=== PATIENT | male | born 1975 | race Caucasian/White ===

== ENCOUNTER 2017-08-21 05:25 | Day surgery (SDC) | payer MEDICARE ==
[2017-08-20 15:48] LABS: BASOPHILS 0.4 % (0-2); EOSINOPHILS 1.4 % (0-7); HEMATOCRIT 35.3 % (42.0-54.0); HEMOGLOBIN 12.2 g/dL (13.5-17.5); IMMATURE GRANULOCYTES 0.3 % (0-5); LYMPHOCYTES 23.1 % (15-50); MCH 33.8 pg (26.0-34.0); MCHC 34.6 g/dL (31.0-37.0); MCV 97.8 fL (80.0-100.0); MEAN PLATELET VOLUME 9.5 fL (7.4-10.4); MONOCYTES 6.5 % (2-11); NEUTROPHILS 68.3 % (40-80); RBC 3.61 10x6/uL (4.20-6.10); RDW 14.4 % (11.5-14.5); WBC 7.4 10x3/uL (4.8-10.8)
[2017-08-20 16:00] LABS: INR 0.99 (0.85-1.17); PROTIME 12.7 SECONDS (11.6-15.0)
[2017-08-20 16:01] LABS: APTT 31.6 SECONDS (22.8-39.4); PLATELET COUNT 195 10x3/uL (130-400)
[2017-08-20 16:09] LABS: ANION GAP 17.1 mmol/L (8-16); CALCIUM 8.7 mg/dL (8.5-10.1); CARBON DIOXIDE 29.5 mmol/L (21.0-32.0); CREATININE - SERUM 10.7 mg/dL (0.6-1.3); POTASSIUM - SERUM 3.6 mmol/L (3.5-5.1)
[~2017-08-21] VITALS: Ht 177.8 cm; Wt 111.6 kg
--- NOTE | ~2017-08-21 | OP ---
PATIENT NAME: JAYLYN CEDENO MEDICAL RECORD: [id number] :79 LOCATION:[facility] ADMISSION DATE: SURGEON: VIDAL DOTSON MD DATE OF OPERATION: 08/21/2017 REFERRED BY: Dr. 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 OPERATION PERFORMED: Right arm AV fistulogram and selective right arm brachial artery arteriogram and open FARLEY banding of high-flow AV fistula. SURGEON: Vidal Dotson MD ANESTHESIA: General with LMA per ART COORDINATOR and Dr. Garrido. PREOPERATIVE NOTE: Mr. Cedeno is a 41-year-old white male gentleman from [place], [place] referred by Dr. Elmore. He has a high-flow right arm brachiocephalic AV fistula, which is hyperpulsatile and aneurysmal due to recurring proximal and arch stenoses. He was referred to or for banding. He has minimal or no symptoms of steal syndrome. DESCRIPTION OF PROCEDURE: Under anesthesia, the patient was prepped and draped in a sterile manner. The fistula was accessed with ultrasound guidance using micropuncture technique and a fistulogram performed, which revealed crok-bi-hvpfirmh 40% to 50% diameter recurrent long segmental stenosis of the cephalic arch. A Glidewire and then a 6-Congolese introducer were placed and a glide catheter then advanced distally over the Glidewire into the distal brachial artery and contrast injection performed, which revealed mild filling of the fistula with good flow distally in the forearm and hand. The catheter and guidewire were pulled back and the guidewire and then the catheter repositioned in the proximal brachial artery and the angiogram repeated. This revealed excellent flow distally into the forearm and hand as well as filling of the AV fistula and no lesions or stenoses or other brachial or proximal radial or ulnar arteries. I then advanced a 4-mm x 40-mm Niobrara angioplasty balloon into the JA segment of the fistula. A transverse incision was made and the underlying cephalic vein portion of the fistula exposed, was encircled with a Silastic tape. Fluoroscopy was used to pinpoint the positioning of the balloon. The balloon was then inflated and two 2-0 Prolene ligatures were placed around the vein over the balloon and tied snugly. The balloon was deflated and removed and replaced with a glide catheter and the brachial artery and repeated contrast injection revealed increased flow distally to the forearm and hand, but persistence of flow into the fistula, though with very slow flow in the aneurysmal segments. I elected to go ahead and remove one of the 2 Prolene ligatures and then repeated an angiogram. This revealed better flow in the fistula. Palpably the fistula was not hyperpulsatile and there was a good thrill. I stopped at this point. The wound was irrigated with saline and then infiltrated with 0.25% Marcaine without epinephrine and closed with a few interrupted inverted 3-0 Vicryl and running intracuticular 4-0 Monocryl and OPERATIVE REPORT [id number] CHITOKRISTIANJAYLYN Dermcm glue. It was dressed with Maxorb Ag, Tegaderm, and Cavilon skin prep. The 6-Congolese sheath was removed and the puncture site sutured with a miaovs-ul-urqnm 4-0 Prolene suture. That site was held with some light pressure until hemostasis was obtained and it was then dressed with Ultrafoam, Tegaderm, and Cavilon skin prep. The patient was awakened and taken to the recovery room. There was no blood loss during the procedure and all sponges, instruments, and needles were accounted for. No drain was used and no surgical specimen was submitted for histopathology. Mr. Cedeno will be discharged to home today, and he is to resume his usual diet and medications and regular dialysis schedule. He will be given an appointment to see me in my office next week. I believe that he should have a followup OPC angiogram in 4-6 weeks as I think it is likely he will need to have the proximal venous stenosis dilated again by that time. Should clinically the flow in the fistula be less than desired, it should be possible to dilate the remaining 2-0 Prolene tie using a high-pressure balloon and dilate it to a 5-mm diameter lumen. More than that would require an open operation I feel to remove the Prolene and place additional ligatures around larger balloons. TRANSINT:[id number] Voice Confirmation ID: [id number] DOCUMENT ID: [id number] VIDAL DOTSON MD at 1241 CC: CLEVELAND ELMORE MD [id number] DICTATION DATE: 08/21/17 1004 SECURITY INTELLIGENCE ANALYST: 08/21/17 1347 [facility] [place] 08/21/17 [id number] [place] [address]
[~2017-08-21 05:25] MED LIST: CELEXA20 MG PO; EFFEXOR XR75 MG PO; METOPROLOL TART50 MG PO; RENVELA800 MG PO; XANAX0.25 MG PO; ZOCOR40 MG PO; ZYLOPRIM300 MG PO
[2017-08-21] MEDS ORDERED: TUMS500 MG PO (07:03)
[2017-08-21] MEDS ORDERED: ISOSORBIDE MONO60 M1 PO (07:04)
[2017-08-21] MEDS ORDERED: GABAPENTIN100 MG PO (07:04)
[2017-08-21] MEDS ORDERED: SENSIPAR30 MG PO (07:05)
[2017-08-21 07:15] VITALS: BP 120/67; Ht 177.8 cm; Wt 111.6 kg
== END 2017-08-21 11:55 | disposition home or self-care (01) ==
LOC: D.OPS 05:25 → D.PAN 08:00 → D.OPS 08:00
PROVIDERS: Internal Medicine
DX: T82.510A Breakdown (mechanical) of surgically created arteriovenous fistula, initial encounter (principal); I70.298 Other atherosclerosis of native arteries of extremities, other extremity; N18.6 End stage renal disease; Z99.2 Dependence on renal dialysis; Z01.812 Encounter for preprocedural laboratory examination

== ENCOUNTER 2018-05-17 11:53 | Inpatient (IN) | payer MEDICARE ==
[~2018-05-17] VITALS: Ht 177.8 cm; Wt 116.5 kg
[~2018-05-17 11:53] MED LIST changes: +GABAPENTIN100 MG PO; +ISOSORBIDE MONO60 M1 PO; +SENSIPAR30 MG PO; +TUMS500 MG PO
[2018-05-20] MEDS ORDERED: FERRIC CITRATE210 MG PO (15:45)
[2018-05-20 15:49] LABS: HEMATOCRIT 29.7 % (42.0-54.0); RBC 3.14 10x6/uL (4.20-6.10); WBC 7.4 10x3/uL (4.8-10.8)
[2018-05-20 15:50] LABS: BASOPHILS 0.4 % (0-2); EOSINOPHILS 1.8 % (0-7); IMMATURE GRANULOCYTES 0.3 % (0-5); LYMPHOCYTES 18.9 % (15-50); MCH 31.8 pg (26.0-34.0); MCHC 33.7 g/dL (31.0-37.0); MCV 94.6 fL (80.0-100.0); MEAN PLATELET VOLUME 9.4 fL (7.4-10.4); NEUTROPHILS 70.6 % (40-80); PLATELET COUNT 203 10x3/uL (130-400); RDW 13.7 % (11.5-14.5)
[2018-05-20 15:57] LABS: APTT 38.5 SECONDS (22.8-39.4); INR 1.1 (0.85-1.17); PROTIME 13.7 SECONDS (11.6-15.0)
[2018-05-20 16:02] LABS: ANION GAP 17.1 mmol/L (8-16); CALCIUM 10.3 mg/dL (8.5-10.1); CARBON DIOXIDE 29.5 mmol/L (21.0-32.0); CREATININE - SERUM 10.6 mg/dL (0.6-1.3); POTASSIUM - SERUM 3.6 mmol/L (3.5-5.1)
[2018-05-21 06:23] VITALS: BP 129/70
[2018-05-21 11:11] VITALS: BP 119/60
--- NOTE | 2018-05-21 11:15 | NUR ---
RECEIVED PT FROM OR. VITALS STABLE. PT HAD A THYROIDECTOMY AND ESRD. PT HAS RIGHT ARM FISTULA. RESERVE RIGHT ARM. IJ CENTRAL LINE, IV IN LEFT HAND ALSO, SITES PATENT WITHOUT REDNESS OR SWELLING, SL. C/O PAIN, GAVE BUPRENEX 0.1MG. PT ON 2L O2, NC. O2 SAT @ 99%. NO S/S OF ACUTE DISTRESS NOTED. PT DENIES ANYTHING FURTHER AT THIS TIME. CALL LIGHT IN REACH. WILL CONTINUE TO MONITOR.
[2018-05-21 12:20] VITALS: BP 111/60
[2018-05-21 12:31] VITALS: BP 113/50; BMI 35.9
[2018-05-21 15:18] VITALS: BP 118/55
--- NOTE | 2018-05-21 17:54 | NUR ---
PT RESTING IN BED, EYES OPEN. NO C/O PAIN. NO S/S OF ACUTE DISTRESS NOTED. HAS AN ORDER FOR A COOL MIST HUMIDIFIER/VAPORIZER, CALLED FEED MILL OPERATOR TO SEE IF WE CAN GET ONE. PT DENIES ANYTHING FURTHER AT THIS TIME. CALL LIGHT IN REACH. WILL CONTINUE TO MONITOR.
[2018-05-21 20:00] VITALS: BP 93/54
--- NOTE | 2018-05-21 20:41 | NUR ---
PT UP WALKING AROUND IN ROOM ALERRTC AND ORIENTED. PT COMPLAINS OF 6/10 ACHE/PRESSURE PAIN IN NECK. PRN PAIN MEDICATIONS GIVEN. FLUSHED OUT TRYALISIS LUMUNS. ALL DRAW BACK AND FLUSH. ORANGE CAPS IN USE. DRESSING TO FRONT OF NECK CLEAN, DRY, AND INTACT. PT DENIES ANY NEEDS AT THIS TIME. WILL CONTINUE TO MONITOR. BED LOW, CALL LIGHT WITHIN REACH. WILL CONTINUE TO MONITOR.
[2018-05-22] VITALS: BP 102/52
--- NOTE | 2018-05-22 00:13 | NUR ---
PT RESTING IN BED WITH EYES CLOSED. RESPIRATIONS EVEN AND UNLABORED. BED LOW SIDE RAILS UP X 2. CALL LIGHT WITHIN REACH. WILL CONTINUE TO MONITOR.
--- NOTE | 2018-05-22 02:28 | NUR ---
PT RESTING WITH EYES CLOSED. RESPIRATIONS EVEN AND UNLABORED. CALL LIGHT WITHIN REACH. WILL CONTINUE TO MONITOR.
[2018-05-22 04:00] VITALS: BP 107/56
[2018-05-22 06:14] LABS: BASOPHILS 0.1 % (0-2); EOSINOPHILS 0 % (0-7); IMMATURE GRANULOCYTES 0.2 % (0-5); LYMPHOCYTES 7.3 % (15-50); MCH 31.3 pg (26.0-34.0); MCHC 32.5 g/dL (31.0-37.0); MCV 96.3 fL (80.0-100.0); MEAN PLATELET VOLUME 9.5 fL (7.4-10.4); MONOCYTES 7.1 % (2-11); NEUTROPHILS 85.3 % (40-80); RDW 13.8 % (11.5-14.5); WBC 8.6 10x3/uL (4.8-10.8)
[2018-05-22 06:34] LABS: HEMATOCRIT 23.7 % (42.0-54.0); HEMOGLOBIN 7.7 g/dL (13.5-17.5); PLATELET COUNT 140 10x3/uL (130-400); RBC 2.46 10x6/uL (4.20-6.10)
[2018-05-22 07:53] LABS: ANION GAP 22.5 mmol/L (8-16); CALCIUM 7.1 mg/dL (8.5-10.1); CARBON DIOXIDE 24.5 mmol/L (21.0-32.0); CREATININE - SERUM 14.7 mg/dL (0.6-1.3)
--- NOTE | 2018-05-22 08:00 | NUR ---
RECIEVED BEDSIDE REPORT. AM ROUNDS COMPLETED. PT AAOX3. VVS, RR UNLABORED, NO S/S OF DISTRESS. PT IS UP IN BED WITH EYES OPEN. STATES HE DID NOT GET MUCH SLEEP LAST NIGHT. PT READY FOR DIALYSIS. WILL CPOC. CL IN REACH, BED IN LOW.
[2018-05-22 08:58] VITALS: BP 127/69
--- NOTE | 2018-05-22 09:46 | NUR ---
PT OUT FOR DIALYSIS. WILL CPOC.
--- NOTE | 2018-05-22 12:45 | NUR ---
PT BACK FROM DIALYSIS VSS, AAOX3, NO S/S OF DISTRESS. WILL CPOC.
[2018-05-22 14:58] VITALS: Ht 177.8 cm; Wt 116.5 kg
[2018-05-22 15:55] VITALS: BP 122/70
[2018-05-22 20:00] VITALS: BP 114/58
--- NOTE | 2018-05-22 20:00 | NUR ---
PT SITTING UP IN BED ALERT AND ORIENTED. PT BANDAGE TO NECK CLEAN, DRY, INTACT. PT DENIES ANY NEEDS OR PAIN AT THIS TIME. BED LOW CALL LIGHT WITHIN REACH. WILL CONTINUE TO MONITOR.
[2018-05-23] VITALS: BP 116/50
--- NOTE | 2018-05-23 01:34 | NUR ---
PT RESTING IN BED WITH EYES CLOSED RESPIRATIONS EVEN AND UNLABORED. BED LOW CALL LIGHT WITHIN REACH. WILL CONTINUE TO MONITOR.
[2018-05-23 03:36] LABS: BASOPHILS 0.6 % (0-2); EOSINOPHILS 0.8 % (0-7); HEMATOCRIT 25.8 % (42.0-54.0); HEMOGLOBIN 8.3 g/dL (13.5-17.5); IMMATURE GRANULOCYTES 0.6 % (0-5); LYMPHOCYTES 21.7 % (15-50); MCH 31.6 pg (26.0-34.0); MCHC 32.2 g/dL (31.0-37.0); MCV 98.1 fL (80.0-100.0); MEAN PLATELET VOLUME 9.4 fL (7.4-10.4); MONOCYTES 7.6 % (2-11); NEUTROPHILS 68.7 % (40-80); PLATELET COUNT 163 10x3/uL (130-400); RBC 2.63 10x6/uL (4.20-6.10); WBC 7.2 10x3/uL (4.8-10.8)
[2018-05-23 03:44] LABS: ANION GAP 18.7 mmol/L (8-16); CALCIUM 7.3 mg/dL (8.5-10.1); CARBON DIOXIDE 28.5 mmol/L (21.0-32.0); CREATININE - SERUM 11.4 mg/dL (0.6-1.3); POTASSIUM - SERUM 4.2 mmol/L (3.5-5.1)
[2018-05-23 04:00] VITALS: BP 114/58
--- NOTE | 2018-05-23 08:00 | NUR ---
RECIEVED BEDSIDE REPORT. AM ROUNDS COMPLETED. VSS, AAOX3, NO S/S OF DISTRESS. RR UNLABORED. ASSESSED PT NECK DRESSING. DRESSING C/D/I. PT CVL PATENT, DRESSING C/D/I. AM MEDS GIVEN, CL IN REACH, BED IN LOW.
[2018-05-23 08:02] VITALS: BP 126/74
[2018-05-23 11:25] VITALS: BP 128/60
--- NOTE | 2018-05-23 15:00 | NUR ---
PT STATES HIS PERIPHERAL IV CAME OUT WHILE HE WAS ASLEEP. ASSESSED THE SITE NO BLEEDING, IV TIP INTACT. APPLIED 2X2 GAUZE AND TAPED. MEDS ALSO GIVEN. DID NOT RESTART IV AT THIS TIME. PT HAVE CVL ON RIGHT IJ. WILL CTM. CL IN REACH, BED IN LOW.
[2018-05-23 15:32] VITALS: BP 120/56
--- NOTE | 2018-05-23 19:15 | NUR ---
Received patient resting in bed, neck dressing C/D/I, Right IJ CVL with three lumens in place, Calcium Chloride infusing @60ml/hr. Continue to be checking Calcium level every four hours. Denied any needs or concerns at this time. No furthur tingling sensation of mouth and lips but does remain sleepy and tired, denies pain or discomfort.
[2018-05-23 20:00] VITALS: BP 147/72
[2018-05-24] VITALS: BP 126/67
--- NOTE | 2018-05-24 01:32 | NUR ---
Last Calcium level has just now resulted, Calcium level @2030 = 9.6 Patient remains drowsy and fatigued easily, denies any pain or discomfort. Recheck @0105 = 10.5 Calcium gtt stopped for now. Level is scheduled to be rechecked later this morning. Discussed with Charge Nurse, will report to Day Shift to inform attending MD.
[2018-05-24 04:00] VITALS: BP 133/67
[2018-05-24 04:54] LABS: BASOPHILS 0.3 % (0-2); EOSINOPHILS 1.4 % (0-7); HEMATOCRIT 25.6 % (42.0-54.0); HEMOGLOBIN 8.5 g/dL (13.5-17.5); IMMATURE GRANULOCYTES 0.5 % (0-5); LYMPHOCYTES 11.2 % (15-50); MCH 31.7 pg (26.0-34.0); MCHC 33.2 g/dL (31.0-37.0); MEAN PLATELET VOLUME 9.9 fL (7.4-10.4); MONOCYTES 8.9 % (2-11); NEUTROPHILS 77.7 % (40-80); PLATELET COUNT 181 10x3/uL (130-400); RBC 2.68 10x6/uL (4.20-6.10); RDW 13.9 % (11.5-14.5)
[2018-05-24 04:59] LABS: MCV 95.5 fL (80.0-100.0); WBC 11.7 10x3/uL (4.8-10.8)
[2018-05-24 05:01] LABS: ANION GAP 22.1 mmol/L (8-16); CALCIUM 9.9 mg/dL (8.5-10.1); CARBON DIOXIDE 22.5 mmol/L (21.0-32.0); CREATININE - SERUM 13.2 mg/dL (0.6-1.3)
[2018-05-24 05:02] LABS: POTASSIUM - SERUM 5.6 mmol/L (3.5-5.1)
--- NOTE | 2018-05-24 06:45 | NUR ---
Calcium level within normal limits this morning = 9.9 K+ is elevated = 5.6, BUN and creatinine progressively higher that yesterday. Will pass on in report. Patient has slept long periods, snoring lightly.
--- NOTE | 2018-05-24 08:00 | NUR ---
RECIEVED BEDSIDE REPORT. PT IN BED WITH EYES OPENED. PT APPEARS LETHARGIC. PT STATES HE ONLY FEELS SLIGHT WEAKNESS, BUT THAT HE IS BETTER THAN YESTERDAY. VVS, AAOX3, RR UNLABORED, NO S/S OF DISTRESS. AM MEDS GIVEN. PT AWAITING DIALYSIS. WILL CPOC. CL IN REACH, BED IN LOW.
[2018-05-24 09:02] VITALS: BP 140/77
--- NOTE | 2018-05-24 10:00 | NUR ---
PT OUT FOR DIALYSIS. VSS, AAOX3. WILL CPOC.
--- NOTE | 2018-05-24 15:00 | NUR ---
PT BACK FROM DIALYSIS, VSS, AAOX3, NO S/S OF DISTRESS, RR UNLABORED. DENIES ANY FURTHER NEEDS AT THIS TIME. MEDS GIVEN, PT CURRENTLY EATING HIS LUNCH. CL IN REACH, BED IN LOW.
--- NOTE | 2018-05-24 15:00 | NUR ---
Nutrition follow-up: Diet: Renal ADA PO intake ~75% average of meals Ca drip +BM Wt: 256# RDN following.
[2018-05-24 16:38] VITALS: BP 133/75
--- NOTE | 2018-05-24 19:45 | NUR ---
RECIEVED ONCOMING REPORT ON PT. PT LAYING IN BED A&O. PT RR EVEN AND UNLABORED. PT RECIEVING CALCIUM CHLORIDE RUNNING AT 30ML/HR. DRESSING TO NECK IS CLEAN,DRY, AND INTACT. PT DENIES ANY NEEDS OR PAIN AT THIS TIME. BED LOW CALL LIGHT WITHIN REACH. WILL CONTINUE TO MONITOR.
[2018-05-24 20:00] VITALS: BP 117/56
--- NOTE | 2018-05-25 01:40 | NUR ---
PT RESTING IN BED COMFORTABLY. RESPIRATIONS EVEN AND UNLABORED. BED LOW CALL LIGHT WITHIN REACH. WILL CONTINUE TO MONITOR.
[2018-05-25 04:00] VITALS: BP 157/82
[2018-05-25 04:57] LABS: BASOPHILS 0.6 % (0-2); EOSINOPHILS 1.8 % (0-7); HEMOGLOBIN 8.5 g/dL (13.5-17.5); IMMATURE GRANULOCYTES 0.4 % (0-5); LYMPHOCYTES 19.3 % (15-50); MCH 31.3 pg (26.0-34.0); MCHC 32.7 g/dL (31.0-37.0); MCV 95.6 fL (80.0-100.0); MEAN PLATELET VOLUME 9.9 fL (7.4-10.4); MONOCYTES 9.1 % (2-11); NEUTROPHILS 68.8 % (40-80); PLATELET COUNT 182 10x3/uL (130-400); RBC 2.72 10x6/uL (4.20-6.10); RDW 13.8 % (11.5-14.5)
[2018-05-25 05:03] LABS: WBC 7.2 10x3/uL (4.8-10.8)
[2018-05-25 05:23] LABS: ANION GAP 17.2 mmol/L (8-16); CALCIUM 10.4 mg/dL (8.5-10.1); CREATININE - SERUM 10.3 mg/dL (0.6-1.3); POTASSIUM - SERUM 5.2 mmol/L (3.5-5.1)
--- NOTE | 2018-05-25 05:37 | NUR ---
STOPPED PT'S CALCIUM CHLORIDE. CALCIUM 10.4 PER MORNING LABS. PT RESTING COMFORTABLY IN BED. DENIES ANY PAIN OR NEEDS AT THIS TIME. BED LOW CALL LIGHT WITHIN REACH. WILL CONTINUE TO MONITOR.
--- NOTE | 2018-05-25 05:43 | NUR ---
RESTING IN BED WITH EYES CLOSED. NO S/S OF DISTRESS OBSERVED, WILL CONT. POC.
--- NOTE | 2018-05-25 07:45 | NUR ---
INITIAL ROUNDING COMPLETED. WHITE BOARD UPDATED, CAREGIVERS INTRODUCED THROUGH THE BATHROOM DOOR, PATIENT IS IN BATHROOM. HE RAINE PAIN. AWAITING LAB RESULTS FROM AM LABS. PATIENT STATES HE "IS GOING HOME TODAY". WILL CONT TO MONITOR
[2018-05-25 09:40] VITALS: BP 142/67
--- NOTE | 2018-05-25 11:17 | NUR ---
SPOKE TO ANTONIO MOLINA AT THIS TIME. REPORTING THE CALCIUM LAB RESULTS, SHE STATED SHE IS PLANNING TO PUT A HOLD ON THE IV CALCIUM AT THIS TIME
[2018-05-25 13:51] VITALS: BP 110/57
[2018-05-25 17:02] VITALS: BP 135/75
--- NOTE | 2018-05-25 18:17 | NUR ---
PATIENT AWAKE, WATCHING TV. HE DENIES PAIN, NO SOB NOTED.
--- NOTE | 2018-05-25 19:46 | NUR ---
RECEIVED REPORT, WILL ASSUME CARE OF PT, WATCHING TV, DENIES ANY NEEDS AT THIS TIME, BED IS LOW, SRX2, CALL LIGHT IN REACH, WILL CONTINUE PLAN OF CARE
[2018-05-25 20:00] VITALS: BP 136/68
--- NOTE | 2018-05-25 20:00 | NUR ---
CALCIUM LAB DRAW COMPLETE, TAKEN TO LAB
[2018-05-26 04:00] VITALS: BP 132/66
--- NOTE | 2018-05-26 04:41 | NUR ---
LAB DRAW COMPLETE, GIVEN TO FRICTION PAINT MACHINE TENDER
--- NOTE | 2018-05-26 04:45 | NUR ---
RN ROUNDS. ASSESSED. PT RESTING WITH NON LABORED RESPIRATIONS, CALL LIGHT IN REACH. MONITOR AND CPOC.
[2018-05-26 05:37] LABS: BASOPHILS 0.3 % (0-2); EOSINOPHILS 2.6 % (0-7); HEMATOCRIT 24.9 % (42.0-54.0); HEMOGLOBIN 8.1 g/dL (13.5-17.5); IMMATURE GRANULOCYTES 0.3 % (0-5); LYMPHOCYTES 19.1 % (15-50); MCH 31.2 pg (26.0-34.0); MCHC 32.5 g/dL (31.0-37.0); MCV 95.8 fL (80.0-100.0); MEAN PLATELET VOLUME 10.1 fL (7.4-10.4); MONOCYTES 10.5 % (2-11); NEUTROPHILS 67.2 % (40-80); PLATELET COUNT 185 10x3/uL (130-400); RDW 13.8 % (11.5-14.5); WBC 7.6 10x3/uL (4.8-10.8)
[2018-05-26 05:56] LABS: ANION GAP 18.8 mmol/L (8-16); CALCIUM 7.9 mg/dL (8.5-10.1); CARBON DIOXIDE 24.3 mmol/L (21.0-32.0); CREATININE - SERUM 12.5 mg/dL (0.6-1.3); POTASSIUM - SERUM 5.1 mmol/L (3.5-5.1)
--- NOTE | 2018-05-26 07:54 | NUR ---
PT LYING IN BED ASLEEP, DID NOT WAKE I ENTERED. CL IN REACH. SRX2. DID NOT FURTHER DISTURB.
--- NOTE | 2018-05-26 08:31 | MORECARE ---
CASE MANAGEMENT DISCHARGE SUMMARY PATIENT: JAYLYN REYNOLDS UNIT: [id number] ADM DATE: 05/21/18 AGE: 42 : 77 SEX: M ROOM/BED: D.2111 AUTHOR: SYLVIA NELSON PHYSICIAN: REFERRING PHYSICIAN: CLEVELAND CASH MD DATE OF SERVICE: 05/26/18 Discharge Plan Patient Name: JAYLYN REYNOLDS Facility: [facility]:[place] : 1975 Planned Disposition: Home or Self Care Anticipated Discharge Date: 05/27/18 Discharge Date: Expected LOS: 6 Initial Reviewer: [email or web address] Initial Review Date: 05/26/2018 Generated: 05/26/18 9:31 am Patient Name: JAYLYN REYNOLDS Page [phone] at 0831 All edits/amendments must be made on the electronic document DICTATION DATE: 05/26/18830 STOCK CLIPPER: HAO 05/26/18830 RPT#: [id number] DC DATE: STATUS: ADM IN [facility] [address] [place] [address] END OF REPORT
--- NOTE | 2018-05-26 08:38 | MORECARE ---
CASE MANAGEMENT DISCHARGE SUMMARY PATIENT: JAYLYN REYNOLDS UNIT: [id number] ADM DATE: 05/21/18 AGE: 42 : [birth year] SEX: M ROOM/BED: D.2111 AUTHOR: SYLVIA NELSON PHYSICIAN: REFERRING PHYSICIAN: CLEVELAND CASH MD DATE OF SERVICE: 05/26/18 Discharge Plan Patient Name: JAYLYN REYNOLDS Facility: [facility]:[place] : 1975 Planned Disposition: Home or Self Care Anticipated Discharge Date: 05/27/18 Discharge Date: Expected LOS: 6 Initial Reviewer: [email or web address] Initial Review Date: 05/26/2018 Generated: 05/26/18 9:38 am Comments DCP- Discharge Planning Updated by [email or web address]: Nury Lin on 05/26/18 7:[address] Patient Name: JAYLYN REYNOLDS Admission Status: Elective Accout number: [id number] Admission Date: 05-21-2018 : 1975 Admission Diagnosis:SECONDARY HYPERPARATHYROIDISM OF RENAL ORIGIN Attending: CLEVELAND CASH Current LOS: 5 Anticipated DC Date: 05-27-2018 Planned Disposition: Home or Self Care Primary Insurance: MEDICARE A & B Discharge Planning Comments: CM MET WITH PATIENT REGARDING D/C NEEDS AND PLANS. PATIENT STATED HE LIVES ALONE AND WILL DRIVE HIMSELF HOME AT DISCHARGE. PATIENT STATED HE IS INDEPENDENT WITH HIS CARE AND HAS BEEN DOING HOME HD FOR AWHILE NOW. PATIENT HAS NO DME AT HOME. PATIENTS PCP IS DR. NEW QUACH IN [facility] AND USES [facility] AT [facility]. PATIENT REFUSED HOME HEALTH WHEN OFFERED. THE IMM FORM WAS SIGNED. CM WILL CONTINUE TO FOLLOW PATIENT WITH D/C NEEDS AND PLANS. PCP DR. NEW QUACH [facility] IN [facility] FINA GLEASON (SISTER) [phone] Manager Imaging: Nury Lin DCPIA - Discharge Planning Initial Assessment Updated by [email or web address]: Nury Lin on 05/26/18 8:32 am * Is the patient Alert and Oriented? Yes * How many steps to enter\exit or inside your home? * PCP DR. NEW QUACH IN [facility] * Pharmacy [facility] IN [facility] * Preadmission Environment Home Alone * ADLs Independent * Equipment None * Other Equipment HOME HD SUPPLIES * List name and contact numbers for known caregivers / representatives who currently or will assist patient after discharge: FINA MONTGOMERY ([place]) [phone] * Verbal permission to speak to the caregivers and representatives has been obtained from the patient. Yes * Community resources currently utilized None * Additional services required to return to the preadmission environment? Yes * Can the patient safely return to the preadmission environment? Yes * Has this patient been hospitalized within the prior 30 days at any hospital? No Coverage Notice Reviewer: [email or web address] Williams Lin Notice Issued Date-Time: 05/26/2018 8:03 Notice Type: IM Discharge Notice Notice Delivered To: Patient Relationship to Patient: Superintendent Seed Mill Name: Delivery Method: HAND - Hand Delivered Terra Days: Prior Verbal Notification: Recipient Understood Notice: Yes Recipient Signature: Yes Med Rec Note Co-signed by Attending: Coverage Notice Comment: Last DP export: 05/26/18 7:31 am Patient Name: JAYLYN REYNOLDS Page [phone] at 0838 All edits/amendments must be made on the electronic document DICTATION DATE: 05/26/18836 CREATIVE ARTS THERAPIST: HAO 05/26/18836 RPT#: [id number] DC DATE: STATUS: ADM IN [facility] [address] [place] [address] END OF REPORT
[2018-05-26 09:27] VITALS: BP 135/69
--- NOTE | 2018-05-26 10:57 | NUR ---
PT CAN GO HOME, TAKE DRESSING OFF NECK. WASH WITH SOAP AND WATER DAILY. TAKE CENTRAL LINE OUT.
[2018-05-26] MEDS ORDERED: ROCALTROL0.25 MCG PO (11:02)
[2018-05-26 12:05] VITALS: BP 124/68
--- NOTE | 2018-05-26 13:09 | NUR ---
IV PATENT. CALL LIGHT IN REACH. [place] NEEDS AT THIS TIME. WILL MONITOR.
[2018-05-26 16:20] VITALS: BP 136/69
--- NOTE | 2018-05-26 17:45 | NUR ---
PT LYING IN BED WATCHING THE GAME. CALCIUM LAB DRAW ORDERED. NO CONCERNS/COMPLAINTS STATED. CL IN REACH. SRX1
--- NOTE | 2018-05-26 19:30 | NUR ---
RECEIVED REPORT, WILL ASSUME CARE OF PT, DENIES ANY NEEDS AT THIS, BED IS LOW. SRX2. CALL LIGHT IN REACH, WILL CONTINUE PLAN OF CARE
--- NOTE | 2018-05-26 20:10 | NUR ---
CALCIUM -9.7, CALL MARK TO COMFIRM ORDERS, WAS TOLD TO RECHECK LAB AT MIDNIGHT IF LESS THAN 8 CALL HER BACK, WAS TOLD TO PUT CALCIUM CHLORIDE 10% INJ 1 GM/10ML VIAL IN D5W 500ML IV SOLN.500ML IV.SOLN ON HOLD,
[2018-05-26 20:24] VITALS: BP 144/60
[2018-05-26 23:55] VITALS: BP 167/88
[2018-05-27 03:50] VITALS: BP 151/81
--- NOTE | 2018-05-27 04:25 | NUR ---
PT RESTING IN BED WITH NO DISTRESS. RESPS. EVEN/NONLABORED. CALL LIGHT IN REACH. MONITOR AND CPOC.
[2018-05-27 05:45] LABS: BASOPHILS 0.4 % (0-2); EOSINOPHILS 2.4 % (0-7); HEMATOCRIT 24.3 % (42.0-54.0); IMMATURE GRANULOCYTES 0.3 % (0-5); LYMPHOCYTES 16.9 % (15-50); MCH 31.1 pg (26.0-34.0); MCHC 32.9 g/dL (31.0-37.0); MCV 94.6 fL (80.0-100.0); MEAN PLATELET VOLUME 9.9 fL (7.4-10.4); MONOCYTES 6.8 % (2-11); NEUTROPHILS 73.2 % (40-80); PLATELET COUNT 197 10x3/uL (130-400); RBC 2.57 10x6/uL (4.20-6.10); RDW 13.9 % (11.5-14.5); WBC 7.9 10x3/uL (4.8-10.8)
[2018-05-27 06:05] LABS: ANION GAP 21.7 mmol/L (8-16); CALCIUM 8.5 mg/dL (8.5-10.1); CREATININE - SERUM 14.3 mg/dL (0.6-1.3); POTASSIUM - SERUM 5.7 mmol/L (3.5-5.1)
--- NOTE | 2018-05-27 13:50 | NUR ---
SHANTHI SCOTT/RN WITH HOME DIALYSIS [phone] VIA PHONE. SHE IS HIS HOME DIALYSIS NURSE AND WILL SEND ORDER TO [facility] FOR WEEKLY CALCIUM LEVEL LAB WORK TO START NEXT SUNDAY. SHE WILL NOTIFY PATIENT OF DATE AND TIME.
--- NOTE | 2018-05-27 14:47 | MORECARE ---
CASE MANAGEMENT DISCHARGE SUMMARY PATIENT: JAYLYN REYNOLDS UNIT: [id number] ADM DATE: 05/21/18 AGE: 42 : 79 SEX: M ROOM/BED: D.2111 AUTHOR: SYLVIA NELSON PHYSICIAN: REFERRING PHYSICIAN: CLEVELAND CASH MD DATE OF SERVICE: 05/27/18 Discharge Plan Patient Name: JAYLYN REYNOLDS Facility: [facility]:[place] : 1975 Planned Disposition: Home or Self Care Anticipated Discharge Date: 05/27/18 Discharge Date: Expected LOS: 6 Initial Reviewer: [email or web address] Initial Review Date: 05/26/2018 Generated: 05/27/18 3:47 pm Comments DCP- Discharge Planning Updated by [email or web address]: Presley Dorman on 05/27/18 1:[address] Patient Name: JAYLYN REYNOLDS Encounter No: [id number] : 1975 Primary Insurance: MEDICARE A & B Anticipated DC Date: 05-27-2018 Planned Disposition: Home or Self Care DCP follow-up note: CM RECEIVED DISCHARGE ORDER, MET WITH PT IN ROOM TO DISCUSS DISCHARGE NEEDS AND PLANNING. CM DISCUSSED AVAILABILITY OF HOME HEALTH, REHAB SERVICES AND MEDICAL EQUIPMENT. PT DENIES DISCHARGE NEEDS. PT REPORTS HE IS DRIVING SELF HOME TODAY AT DISCHARGE. IMPORTANT MESSAGE FROM MEDICARE PROVIDED AND EXPLAINED. VOCATIONAL NURSE NURSE NOTIFIED. RUY Rivera DCP- Discharge Planning Updated by [id number]: Nury Lin on 05/26/18 7:[address] Patient Name: JAYLYN REYNOLDS Admission Status: Elective Accout number: [id number] Admission Date: 05-21-2018 : 1975 Admission Diagnosis:SECONDARY HYPERPARATHYROIDISM OF RENAL ORIGIN Attending: CLEVELAND CASH Current LOS: 5 Anticipated DC Date: 05-27-2018 Planned Disposition: Home or Self Care Primary Insurance: MEDICARE A & B Discharge Planning Comments: CM MET WITH PATIENT REGARDING D/C NEEDS AND PLANS. PATIENT STATED HE LIVES ALONE AND WILL DRIVE HIMSELF HOME AT DISCHARGE. PATIENT STATED HE IS INDEPENDENT WITH HIS CARE AND HAS BEEN DOING HOME HD FOR AWHILE NOW. PATIENT HAS NO DME AT HOME. PATIENTS PCP IS DR. NEW QUACH IN [facility] AND USES [facility] AT [facility]. PATIENT REFUSED HOME HEALTH WHEN OFFERED. THE IMM FORM WAS SIGNED. CM WILL CONTINUE TO FOLLOW PATIENT WITH D/C NEEDS AND PLANS. PCP DR. NEW QUACH [facility] IN [facility] FINA GLEASON (SISTER) [phone] Zigzag Topstitcher: Nury Lin DCPIA - Discharge Planning Initial Assessment Updated by [email or web address]: Nury Lin on 05/26/18 8:32 am * Is the patient Alert and Oriented? Yes * How many steps to enter\exit or inside your home? * PCP DR. NEW QUACH IN [facility] * Pharmacy [facility] * Preadmission Environment Home Alone * ADLs Independent * Equipment None * Other Equipment HOME HD SUPPLIES * List name and contact numbers for known caregivers / representatives who currently or will assist patient after discharge: FINA MONTGOMERY ([place]) [phone] * Verbal permission to speak to the caregivers and representatives has been obtained from the patient. Yes * Community resources currently utilized None * Additional services required to return to the preadmission environment? Yes * Can the patient safely return to the preadmission environment? Yes * Has this patient been hospitalized within the prior 30 days at any hospital? No Coverage Notice Reviewer: [id number] - Nury Lin Notice Issued Date-Time: 05/26/2018 8:03 Notice Type: IM Discharge Notice Notice Delivered To: Patient Relationship to Patient: Machine Woodworking Sander Name: Delivery Method: HAND - Hand Delivered Terra Days: Prior Verbal Notification: Recipient Understood Notice: Yes Recipient Signature: Yes Med Rec Note Co-signed by Attending: Coverage Notice Comment: Reviewer: [id number] - Presley Dorman Notice Issued Date-Time: 05/27/2018 14:25 Notice Type: IM Discharge Notice Notice Delivered To: Patient Relationship to Patient: Machine Woodworking Sander Name: Delivery Method: HAND - Hand Delivered Terra Days: Prior Verbal Notification: Recipient Understood Notice: Yes Recipient Signature: Yes Med Rec Note Co-signed by Attending: Coverage Notice Comment: Last DP export: 05/26/18 7:38 am Patient Name: JAYLYN REYNOLDS Page [phone] at 1447 All edits/amendments must be made on the electronic document DICTATION DATE: 05/27/181445 SECURITY INSPECTOR: HAO 05/27/181445 RPT#: [id number] DC DATE: STATUS: ADM IN [facility] [address] [place] [address] END OF REPORT
--- NOTE | 2018-05-27 15:51 | NUR ---
ALERT AND ORIENTED X4. LAYING IN BED. STUDENT NURSE DC RT IJ CVL LINE TIP INTACT WITH INSTRUCTOR AT BEDSIDE. PRESSURE HELD PER PROTOCOL. DISCHARGE INSTRUCTIONS GIVEN VERBALLY AND WRITTEN. DISCHARGE PAPERS SIGNED ON CHART. ESCORT TO RIDE VIA WHEELCHAIR. REMAINS FREE FROM INJURY. HUMIDIFIER TAKEN HOME.
--- NOTE | 2018-05-29 18:18 | NUR ---
Late Entry for 05/27/18 @ 10:00: Dialysis Coordinator: Met with patient bedside in acutes. Home Hemodialysis patient from [facility]. Medical records forwarded to home unit. Patient plans to return to home modality at discharge from hospital. ELISABETH PARRY.
--- NOTE | 2018-06-07 13:38 | OP ---
PATIENT NAME: JAYLYN CEDENO MEDICAL RECORD: [id number] :79 LOCATION:D.M2 D.2110 ADMISSION DATE:05/21/18 SURGEON: VIDAL DOTSON MD DATE OF OPERATION: 05/21/2018 He is admitted to inpatient status today. REFERRING PHYSICIAN: Dr. Elmore. PREOPERATIVE DIAGNOSES: End-stage renal disease and dependence on hemodialysis and renal secondary hyperparathyroidism. POSTOPERATIVE DIAGNOSES: End-stage renal disease and dependence on hemodialysis and renal secondary hyperparathyroidism. OPERATION PERFORMED: Neck exploration and parathyroidectomy, removing 3-1/2 glands and insertion of a right internal jugular percutaneous central venous line done with ultrasound guidance. SURGEON: Vidal Dotson MD ANESTHESIA: General endotracheal per PARIMUTUEL CLERK. PREOPERATIVE NOTE: Mr. Cedeno is a 42-year-old white male, patient of Dr. Elmore, from [place], [place] is a home hemodialysis patient and has rather severe secondary hyperparathyroidism. He is admitted to the hospital this morning and will go to surgery for parathyroidectomy. DESCRIPTION OF PROCEDURE: Under general endotracheal anesthesia with the patient in lounge chair position and the neck mildly hyperextended. He was prepped and draped in a sterile manner. A transverse collar incision was made and subcutaneous tissues and platysma divided transversely. Hemostasis was obtained with electrocautery. Flaps superior and inferior were raised with electrocautery and the midline then opened and the strap muscles mobilized from the anterior surface of the thyroid gland. The left side was explored first. The upper lobe was mobilized and the superior thyroid vessels divided with Harmonic scalpel right on the gland and predominantly blunt dissection was used to identify a rather large left superior parathyroid gland. Further dissection and inferiorly demonstrated the inferior thyroid artery and recurrent laryngeal nerve and a large parathyroid gland was identified. I then dissected on the right side and identified again a large inferior parathyroid and a much smaller superior parathyroid, which I first thought was a small thyroid nodule. On this side as well, the recurrent laryngeal nerve was identified and protected as it had been on the left. I did not have to fully mobilize the superior thyroid lobe on the right side. I then excised the 3 large glands that is the right inferior and the left superior and inferior, and one half of the right superior gland. Frozen section demonstrated all 3 of these specimens to be hypertrophied or adenomatous parathyroid tissue. The wound was inspected and hemostasis found to be quite excellent. No drain was used. The strap muscles were reapproximated in the midline with interrupted inverted 3-0 Vicryl and the flaps infiltrated with 0.25% Marcaine without epinephrine. The flaps were closed with interrupted inverted 3-0 Vicryl for platysma and the skin was closed with a running intracuticular 4-0 Monocryl and Dermabond glue. I then used ultrasound to locate the right internal jugular vein at the level just above the incision through a small stab incision. I inserted a micropuncture needle directly into OPERATIVE REPORT [id number] JAYLYN CEDENO the vein and then a wire catheter and then a wire exchange and finally another dilator and then a triple lumen Aeroguard central venous line was inserted. It was sutured to the skin at the entry site. All 3 lumens aspirated, free return of blood confirmed. They were then flushed with heparin-lock solution, clamped and capped. Sterile dressing with chlorhexidine biodisc was applied. The primary incision was sealed with glue and dressed with Maxorb AG and Tegaderm with Cavilon skin prep and the patient was then awakened and extubated and taken to the recovery room in stable condition without any respiratory distress or stridor. PLAN: The patient will be monitored in the hospital overnight and is necessary for the next few days if he requires calcium replacement therapy or intravenous calcium replacement therapy, I suspect he will. Blood loss during the procedure was about 5 cc. None replaced. Sponges, instruments, and needles were accounted for. No drain was used. TRANSINT:[id number] Voice Confirmation ID: [id number] DOCUMENT ID: [id number] VIDAL DOTSON MD at 1338 CC: CLEVELAND ELMORE MD [id number] DICTATION DATE: 05/21/18 1032 ARTISTS' MODEL: 05/21/18 1146 DIS IN 05/27/18 [place] [id number] [place] [id number]
== END 2018-05-27 15:55 | disposition home or self-care (01) | DRG 674 ==
LOC: D.SDCHOLD 05-21 05:20 → D.M2 05-21 05:20 → D.SDCHOLD 05-21 08:00 → D.M2 05-21 11:07
PROVIDERS: Surgery; ADMIT Internal Medicine
PROC: 05HM33Z Insertion of Infusion Device into Right Internal Jugular Vein, Percutaneous Approach (ICD-10-PCS; 2018-05-21)
PROC: B543ZZA Ultrasonography of Right Jugular Veins, Guidance (ICD-10-PCS; 2018-05-21)
PROC: 0GBQ0ZZ Excision of Multiple Parathyroid Glands, Open Approach (ICD-10-PCS; principal; 2018-05-21 08:00)
DX: N25.81 Secondary hyperparathyroidism of renal origin (principal); I12.0 Hypertensive chronic kidney disease with stage 5 chronic kidney disease or end stage renal disease; N18.6 End stage renal disease; Z99.2 Dependence on renal dialysis; D63.1 Anemia in chronic kidney disease; E11.22 Type 2 diabetes mellitus with diabetic chronic kidney disease; I25.10 Atherosclerotic heart disease of native coronary artery without angina pectoris; F41.9 Anxiety disorder, unspecified; G47.30 Sleep apnea, unspecified